=== PATIENT | male | born 1985 | race African-American/Black ===

== ENCOUNTER 2021-01-04 20:58 | Emergency (ER) | payer SELFPAY ==
[~2021-01-04] VITALS: Ht 190.5 cm; Wt 117.9 kg
[2021-01-04] MEDS ORDERED: ACETAMINOPHEN 325 MG TAB PO ONE (21:15)
[2021-01-04] MEDS ORDERED: CASIRIVIMAB/IMDEVIMAB 10 ML in SODIUM CHLORIDE 0.9% 100 ML IV ONE (22:00)
== END 2021-01-05 00:01 | disposition home or self-care (01) ==
LOC: ER 21:04
DX: U07.1 COVID-19 (principal); R05 Cough; R06.02 Shortness of breath
CPT/HCPCS: 71045; 99283; J7050; U0002